=== PATIENT | male | born 1970 | race Caucasian/White ===

== ENCOUNTER 2017-05-23 07:59 | Inpatient (IN) | payer OTHER ==
[2017-05-02 15:15] VITALS: BMI 32.0
--- NOTE | 2017-05-02 15:40 | PAT Medication Instructions ---
Service Date May 02, 2017. Current Home Medication List Carvedilol (Coreg), 25 MG PO BID Gabapentin (Neurontin), 300 MG PO TID Hydrocodone-Acetaminophen (Lortab 5-325 mg), 1 TAB PO QID PRN for Pain Medication Instructions For Your Scheduled Surgery - Take the following medications the morning of surgery with a sip of water: Carvedilol (Coreg), 25 MG PO BID Gabapentin (Neurontin), 300 MG PO TID Hydrocodone-Acetaminophen (Lortab 5-325 mg), 1 TAB PO QID PRN for Pain (if needed up to four hours before surgery) - Take the following medications as scheduled the night before surgery: Carvedilol (Coreg), 25 MG PO BID Gabapentin (Neurontin), 300 MG PO TID Hydrocodone-Acetaminophen (Lortab 5-325 mg), 1 TAB PO QID PRN for Pain (if needed) If you have any questions please call us at [phone] or [phone] or [phone]
[2017-05-02 16:32] LABS: BASO % 0.4 %; BASO ABS # 0.05 K/uL (0-0.2); COMPLETE YES; EOS % 2.5 %; HEMATOCRIT 47.8 % (42-52); IG% 0.3 %; LYMPH % 24.5 %; LYMPH ABS # 2.77 K/uL (1.2-3.4); MEAN CELL VOLUME 91.4 fL (80-100); MEAN CORPUSCULAR HEMOGLOBIN 31.5 pg (25-34); MEAN CORPUSCULAR HGB CONC 34.5 g/dl (32-36); MEAN PLATELET VOLUME 9.6 fL (7.4-10.4); MONO % 8.9 %; NEUT % 63.4 %; PLATELET COUNT 327 K/uL (130-400); RED BLOOD COUNT 5.23 M/uL (4.7-6.1); WHITE BLOOD COUNT 11.31 K/uL (4.8-10.8)
--- NOTE | 2017-05-02 16:36 | DIAGNOSTIC IMAGING REPORT ---
TWO VIEW CHEST CLINICAL HISTORY: Preoperative examination. FINDINGS: PA and lateral chest radiographs are obtained. No prior studies are available for comparison at the time of dictation. The cardiomediastinal silhouette is unremarkable. The lungs and pleural spaces are clear. There is no pneumothorax. The bony thorax appears intact. Fusion hardware is seen in the lower cervical spine. IMPRESSION: No active disease in the chest. Electronically signed by: Sesar Nassar M.D. 05/02/2017 4:35 PM Dictated Date/Time: 05/02/2017 4:35 PM
[2017-05-02 16:40] LABS: BUN/CREATININE RATIO 10.3 (10-20); POTASSIUM 4.1 mmol/L (3.5-5.1)
[2017-05-02 16:50] LABS: URINE APPEARANCE CLOUDY (CLEAR); URINE BILIRUBIN NEG (NEG); URINE COLOR YELLOW; URINE NITRITE NEG (NEG); URINE PH 5.5 (4.5-7.5); URINE SPECIFIC GRAVITY 1.023 (1.000-1.030); UROBILINOGEN NEG (NEG); ZZUR CULT IF INDIC CLEAN CATCH NO
[2017-05-02 16:52] LABS: MANUAL MICROSCOPIC REQUIRED? NO; REVIEW REQ? NO
[2017-05-02 16:53] LABS: PARTIAL THROMBOPLASTIN RATIO 1.2; PROTHROMBIN TIME (PATIENT) 10.9 SECONDS (9.0-12.0)
[2017-05-02 17:16] LABS: ESTIMATED AVERAGE GLUCOSE 128 mg/dl; HA1C FLAG Normal (Normal)
--- NOTE | 2017-05-22 13:32 | HISTORY & PHYSICAL EXAMINATION ---
DATE OF ADMISSION: 05/23/2017 HISTORY OF PRESENT ILLNESS: The patient is a 46-year-old white male 6 foot, 240 pounds presents with complaints of ongoing pain attributed to his left knee. He has failed attempts at conservative management and presents for left total knee arthroplasty. He has failed attempts at injections, viscosupplementations, corticosteroid injections, anti-inflammatories, relative rest, activity modification. He presents with subchondral cystic formation lateral compartment DJD, valgus alignment, osteophytes with complaints of pain that are affecting him on a daily basis. He is unable to ambulate without pain, it is affecting the quality of his life. Discussed risks and complications and he has elected to proceed forward with total knee arthroplasties. PAST MEDICAL HISTORY: Significant for hypertension, sleep apnea, rheumatoid arthritis, spine DJD, neck DJD. FAMILY HISTORY: Otherwise unremarkable and noncontributory. SOCIAL HISTORY: The patient relates smoking 1 pack per day for 20 years, drinking 5 alcoholic drinks per week. No recreational drug use of marijuana is noted. PAST SURGICAL HISTORY: Otherwise unremarkable. ALLERGIES: None. MEDICATIONS: Include hypertensive medication, dose unknown. REVIEW OF SYSTEMS: Otherwise unremarkable. See history of present illness for pertinent positives. PHYSICAL EXAMINATION: GENERAL: Reveals a very pleasant 46-year-old white male with severe end-stage DJD who has failed attempts at conservative management and presents for total knee arthroplasty. He is otherwise unremarkable. HEENT: Atraumatic, normocephalic. HEART: Regular rate at 72 beats per minute. No murmurs are noted. LUNGS: Clear. No rales, rhonchi, or wheezes noted. ABDOMEN: Soft, nontender, nondistended. Bowel sounds are present in all 4 quadrants. RECTAL: No rectal examination was performed. MUSCULOSKELETAL: There is severe end-stage degenerative joint disease, left knee. Plan is for left total knee arthroplasty, postoperative pain management, DVT prophylaxis. X-ray of the left knee revealed evidence of subchondral sclerosis. Lateral compartment osteophytes sclerosis, subchondral and chondral defects as well as patellofemoral DJD with marginal osteophytes about the entire knee. The patient has failed attempts at conservative management and presents for total knee arthroplasty. MTDD
[~2017-05-23] VITALS: Ht 182.9 cm; Wt 109.2 kg
[2017-05-23] VITALS (8 sets, daily range): BP systolic 131–153; BP diastolic 77–100; PULSE 71–87; TEMP 36.5–36.8; O2SAT 95–99; Ht 182.9 cm; Wt 109.2 kg
[2017-05-23] MEDS: TRANEXAMIC ACID INJ 1,000 MG in SODIUM CHLORIDE 0.9% 100ML 100 ML IV SCH ×2 (06:30→09:52)
--- NOTE | 2017-05-23 07:09 | History & Physical Bridge Note ---
H&P Re-Evaluation Bridge Note: I have examined the patient, reviewed the History & Physical and in the interval since the performance of the History & Physical I have noted the following changes of clinical significance: No changes noted
[~2017-05-23 07:59] MED LIST: ACETAMINOPHEN 500 MG TAB PO SCH; ATROPINE SULFATE 0.1 MG/ML 5ML SYR IV PRN; BUPIVACAINE 0.5 % 5 MG/1 ML PF 10ML VIAL ONE; CARV25TA PO; CEFAZOLIN 2000MG IV PUSH 10 ML IV SCH; CeleBREX 200 MG CAP PO SCH; DEXAMETHASONE 4 MG TAB PO SCH; EpHEDrine SULFATE INJ 50 MG/ML AMP IV PRN; FAMOTIDINE 20 MG TAB PO SCH; GABA-113 PO; GABAPENTIN 300 MG CAP PO SCH; HYDR-4330 PO; HYDROmorphone INJ 2 MG/ML SYR/VIAL IV PRN; LACTATED RINGER'S 1000ML 1,000 ML IV SCH; LACTATED RINGER'S 1000ML IV SCH; LACTATED RINGER'S 500 ML IV SCH; METOCLOPRAMIDE HCL 10 MG TAB PO SCH; ONDANSETRON INJ 2 MG/ML 2 ML VIAL IV PRN; OXYCODONE HCL 10 MG TABCR (OXYCONTIN) PO SCH; PHENYLEPHRINE 100MCG/ML 5ML SYR IV PRN; ROPIVACAINE 0.5% 5 MG/ML 30 ML VIAL ONE; ROPIVACAINE 5MG/ML 30 ML 150 MG, BUPIVACAINE/EPINEPHR 0.5% MPF 30 ML, KETOROLAC TROMETH... INFIL SCH
[2017-05-23] MEDS ORDERED: PROPOFOL IV EMULSION 10 MG/ML 20 ML VIAL IV ONE ×2 (08:50→11:14)
[2017-05-23] MEDS ORDERED: ONDANSETRON INJ 2 MG/ML 2 ML VIAL ONE (08:50)
[2017-05-23] MEDS ORDERED: LIDOCAINE HCL 2% 2 ML VIAL (20MG/ML) ONE (08:50)
[2017-05-23] MEDS ORDERED: MIDAZOLAM HCL 1 MG/ML 2ML VIAL ONE (08:51)
[2017-05-23] MEDS ORDERED: FENTANYL CITRATE INJ 50 MCG/1 ML 2 ML VIAL ONE (08:52)
[2017-05-23] MEDS ORDERED: BACITRACIN 50000 UNIT VIAL ONE (10:08)
[2017-05-23] MEDS ORDERED: POVIDONE-IODINE OP SOLN 30 ML BTL ONE (10:08)
[2017-05-23] MEDS ORDERED: ORTHO JOINT ANESTHETIC ONE (10:08)
--- NOTE | 2017-05-23 11:47 | [facility] Operative Report ---
Operative Report Operative Date May 23, 2017. Pre-Operative Diagnosis Severe End-Stage Degenerative Joint Disease Left Knee Post-Operative Diagnosis Severe End-Stage Degenerative Joint Disease Left Knee Procedure(s) Performed Left Total Knee Arthroplasty utilizing Madrigal & Nephew journey 2 nonlocked total knee arthroplasty size 6 femur 6 tibia 10 Angela [address] Faust Mechanical Process Engineer Surgeon(s) Dr. Hamlin/VLAD Tovar Estimated Blood Loss 5 ml Findings Patient presents with severe end-stage Tri-Chlor milligrams joint disease with varus alignment medial osteophyte subchondral cystic changes [id number] changes for total knee arthroplasty after failing attempts at conservative management Specimens A. Left Knee Bone and Tissue Complication(s) None Disposition Recovery Room / PACU Indications Patient presents with severe end-stage Tri-Chlor metal degenerative joint disease with varus alignment patient presents for total knee arthroplasty left knee Description of Procedure After proper prepping and draping of the left lower extremity anterior midline incision was made over the region of the extensor extensor mechanism after meticulous hemostasis was obtained and maintained in subcutaneous tissues a medial parapatellar incision was made The patella was subluxed lateralward the medial lateral gutter were cleaned from any hypertrophic synovitis and scar tissue of the distal femoral block was placed and the distal femoral osteotomy cut was made subsequently the chamfers anterior and posterior osteotomy cuts were made utilizing the 4-in-1 block the tibia was subsequently subluxed anteriorward medial and ateral meniscal remnants were excised in their entirety remnants of the anterior and posterior cruciate ligaments were excised in their entirety excellent exposure of the proximal tibia was obtained the tibial osteotomy guide was placed on the proximal tibial osteotomy cut was made once again the knee was irrigated with copious amounts of sterile saline solution the patella was subsequently everted lateralward thickened scar tissue around the patella was removed the patella was subsequently cut utilizing a freehand technique and was drilled prepared for final preparation and placement of patella socially flexion-extension gaps were checked and the equal and symmetric trials were placed to the appropriate femoral and tibial trials with poly-spacer being placed for equal flexion and extension gaps and full range of motion including extension to 0 and flexion to 140 the trial components after having been taken to recovery range of motion was subsequently removed meticulous hemostasis was obtained and maintained subsequently a knee block injection of joint cocktail including ropivacaine 0.5% 150 mg. Bupivacaine 0.5 % epinephrine 1-200,030 mL's toradol 30 mg dexamethasone 4 mg ketamine 10 mg clonidine 100 micrograms normal saline solution 30 mg was infiltrated into the soft tissues of the posterior knee medial lateral gutters and periosteal synovium special attention was paid to protect neurovascular structures at all times subsequently trial components having been removed the knee was irrigated with sterile saline solution. debris was removed the proximal tibia was subsequently prepared and was made ready for the placement of the tibial component tibial component was also cemented and tamped into position the femoral component was subsequently placed and cemented in the position the patellar component was subsequently cemented in position because hemostasis once again obtained and maintained wound having been thoroughly irrigated with debridement and debridement lavage was performed as well as a medial parapatellar incision closed with #1 Vicryl in interrupted fashion subcutaneous was closed with #2 Vicryl skin was closed with skin clips. Dr Oliveira and TANIA were necessary for prepping and drapping as well as wound closure of deep fascia Sub cutaneous tissue and skin and was necessary for the case. A sterile compressive dressing was placed patient was taken to recovery in stable condition of report dictated by Govind I attest to the content of the Intraoperative Record and any orders documented therein. Any exceptions are noted below. I attest to the content of the Intraoperative Record and any orders documented therein. Any exceptions are noted below.
[2017-05-23] MEDS ORDERED: MAGNESIUM HYDROXIDE SUSP 30 ML UDC PO PRN (12:30)
[2017-05-23] MEDS ORDERED: ONDANSETRON INJ 2 MG/ML 2 ML VIAL IV PRN (12:30)
[2017-05-23] MEDS ORDERED: BISACODYL 10 MG SUPP PR PRN (12:30)
[2017-05-23] MEDS ORDERED: ALUMINUM/MAGNESIUM/SIMETH (MAALOX MAX) 30 ML UDC PO PRN (12:30)
[2017-05-23] MEDS ORDERED: HYDROmorphone INJ 2 MG/ML SYR/VIAL ONE (12:41)
--- NOTE | 2017-05-23 12:55 | DIAGNOSTIC IMAGING REPORT ---
L KNEE 1 OR 2 VIEWS ROUTINE CLINICAL HISTORY: AP/LATERAL IN PACU LEFT KNEE COMPARISON: None. DISCUSSION: Anatomic alignment status post total left knee arthroplasty. Good contact between prosthetic and underlying bone. Surgical drains are in position. Expected soft tissue postoperative change IMPRESSION: Anatomic alignment status post total joint replacement The above report was generated using voice recognition software. It may contain grammatical, syntax or spelling errors. Electronically signed by: Krystian Morel M.D. 05/23/2017 12:53 PM Dictated Date/Time: 05/23/2017 12:53 PM
--- NOTE | 2017-05-23 13:13 | Anesthesiology Progress Note ---
Anesthesia Post Op Note Date & Time May 23, 2017 at 13:13 Vital Signs Pain Intensity: 3 Vital Signs Past 12 Hours Date Time Temp Pulse Resp B/P (MAP) Pulse Ox O2 Delivery O2 Flow Rate FiO2 05/23/17 13:09 68 18 05/23/17 13:09 79 18 100 05/23/17 13:06 133/96 05/23/17 13:04 61 24 05/23/17 13:04 61 24 100 05/23/17 13:01 120/81 05/23/17 12:59 79 21 99 05/23/17 12:59 77 21 05/23/17 12:58 36.5 67 22 120/81 (93) 100 Nasal Cannula 2 05/23/17 12:56 137/80 05/23/17 12:54 57 14 100 05/23/17 12:54 60 14 05/23/17 12:53 114/91 05/23/17 12:50 58 16 136/88 100 Nasal Cannula 2 05/23/17 12:40 60 16 140/90 100 Nasal Cannula 2 05/23/17 12:30 59 16 138/93 100 Nasal Cannula 2 05/23/17 12:20 37.2 63 16 152/97 99 Nasal Cannula 2 05/23/17 08:23 36.6 80 20 153/91 96 Notes Mental Status: alert / awake / arousable, participated in evaluation Pt Amnestic to Procedure: Yes Nausea / Vomiting: adequately controlled Pain: adequately controlled Airway Patency, RR, SpO2: stable & adequate BP & HR: stable & adequate Hydration State: stable & adequate Anesthetic Complications: no major complications apparent
[2017-05-23] MEDS: OXYCODONE HCL IR 5 MG TAB (IMMEDIATE RELEASE) PO PRN ×2 (13:55→22:03)
[2017-05-23] MEDS: GABAPENTIN 300 MG CAP PO SCH ×2 (14:11→21:01)
[2017-05-23] MEDS: ACETAMINOPHEN 500 MG TAB PO SCH ×2 (14:11→22:03)
[2017-05-23] MEDS: D5W AND 1/2NSS + 20MEQ KCL 1,000 ML IV SCH (14:11)
[2017-05-23] MEDS: TRAMADOL HCL 50 MG TAB PO PRN (16:31)
[2017-05-23] MEDS: FERROUS GLUCONATE 324 MG TAB PO SCH (18:30)
[2017-05-23] MEDS: CEFAZOLIN IV 2,000 MG in SYRINGE 0 ML IV SCH (18:32)
[2017-05-23] MEDS: KETOROLAC TROMETHAMINE 30 MG/ML VIAL IV. SCH (18:32)
[2017-05-23] MEDS: DOCUSATE SODIUM 100 MG CAP PO SCH (21:00)
[2017-05-23] MEDS: CARVEDILOL 25 MG TAB PO SCH (21:01)
[2017-05-23] MEDS: ASPIRIN 81 MG ECTAB PO SCH (21:01)
[2017-05-23] MEDS ORDERED: NURSING VERBAL MED ORDER ONE (23:00)
[2017-05-24] VITALS (8 sets, daily range): BP systolic 116–160; BP diastolic 50–82; PULSE 64–82; TEMP 36.5–36.8; O2SAT 96–99
[2017-05-24] MEDS: D5W AND 1/2NSS + 20MEQ KCL 1,000 ML IV SCH ×2 (00:24→10:00)
[2017-05-24] MEDS: KETOROLAC TROMETHAMINE 30 MG/ML VIAL IV. SCH ×3 (00:24→11:58)
[2017-05-24] MEDS: CEFAZOLIN IV 2,000 MG in SYRINGE 0 ML IV SCH (02:03)
[2017-05-24] MEDS: ACETAMINOPHEN 500 MG TAB PO SCH ×3 (05:41→22:23)
[2017-05-24 07:23] LABS: MEAN CORPUSCULAR HEMOGLOBIN 30.9 pg (25-34); MEAN CORPUSCULAR HGB CONC 33.2 g/dl (32-36); MEAN PLATELET VOLUME 9.8 fL (7.4-10.4); PLATELET COUNT 270 K/uL (130-400); RED BLOOD COUNT 3.98 M/uL (4.7-6.1); WHITE BLOOD COUNT 25.26 K/uL (4.8-10.8)
[2017-05-24 07:58] LABS: BUN/CREATININE RATIO 10.3 (10-20); CREATININE 1.01 mg/dl (0.60-1.40); POTASSIUM 4.8 mmol/L (3.5-5.1)
--- NOTE | 2017-05-24 07:58 | Orthopedic Progress Note ---
Orthopedic Progress Note Date of Service May 24, 2017. Subjective Post OP Day: 1 Reports: feeling well, Denies: complaints Additional Notes: Pain controlled currently. No complaints this AM. Objective calves soft nontender, N/V intact, dressing C/D/I, A&O x3, toes mobile, hemovac drainage (200ml latest shift) Date Time Temp Pulse Resp B/P (MAP) Pulse Ox O2 Delivery O2 Flow Rate FiO2 05/24/17 07:22 36.5 71 18 116/69 (85) 98 Room Air 05/24/17 03:15 36.6 82 18 116/69 (85) 96 Room Air 05/23/17 23:30 Room Air 05/23/17 22:43 36.8 84 18 132/77 (95) 98 Room Air 05/23/17 20:59 71 146/91 (109) 05/23/17 19:10 36.5 78 18 146/83 (104) 97 Room Air 05/23/17 16:20 95 Room Air 3.0 05/23/17 14:30 81 18 152/100 (117) 95 Room Air 05/23/17 14:02 87 16 131/88 (102) 95 Nasal Cannula 3.0 05/23/17 13:30 Nasal Cannula 2.0 05/23/17 13:30 99 Nasal Cannula 2.0 05/23/17 13:30 36.7 77 16 137/85 (102) 99 Nasal Cannula 2.0 05/23/17 13:09 68 18 05/23/17 13:09 79 18 100 05/23/17 13:06 133/96 05/23/17 13:04 61 24 05/23/17 13:04 61 24 100 05/23/17 13:01 120/81 05/23/17 12:59 79 21 99 05/23/17 12:59 77 21 05/23/17 12:58 36.5 67 22 120/81 (93) 100 Nasal Cannula 2 05/23/17 12:56 137/80 05/23/17 12:54 57 14 100 05/23/17 12:54 60 14 05/23/17 12:53 114/91 05/23/17 12:50 58 16 136/88 100 Nasal Cannula 2 05/23/17 12:40 60 16 140/90 100 Nasal Cannula 2 05/23/17 12:30 59 16 138/93 100 Nasal Cannula 2 05/23/17 12:20 37.2 63 16 152/97 99 Nasal Cannula 2 05/23/17 08:23 36.6 80 20 153/91 96 Laboratory Results 24 Hours: Test 05/24/17 06:43 Hematocrit 37.0 % Hemoglobin 12.3 g/dL Assessment & Plan Assessment: POD 1 s/p Left TKA Leukocytosis - likely due to preop steroids/surgical stress. Asymptomatic. Will recheck CBC tomorrow Plan: PT/OT Unsure of what he would like to do for PT. Plans to talk to CM this AM. OPPT vs HH services Inhouse Planning Pain Management: Celebrex, Toradol, Ultram, PO Tylenol, Oxy IR DVT Prophylaxis: TEDs, SCDs, ASA Discharge Planning Discharge Planning: uncertain
[2017-05-24] MEDS: FERROUS GLUCONATE 324 MG TAB PO SCH ×3 (08:56→18:33)
[2017-05-24] MEDS: DOCUSATE SODIUM 100 MG CAP PO SCH ×2 (08:57→20:54)
[2017-05-24] MEDS: MULTIVITAMIN TAB PO SCH (08:57)
[2017-05-24] MEDS: GABAPENTIN 300 MG CAP PO SCH ×3 (08:57→20:55)
[2017-05-24] MEDS: ASPIRIN 81 MG ECTAB PO SCH ×2 (08:57→20:55)
[2017-05-24] MEDS: PANTOprazole SOD 40 MG TAB PO SCH (08:58)
[2017-05-24] MEDS: OXYCODONE HCL IR 5 MG TAB (IMMEDIATE RELEASE) PO PRN ×3 (09:02→21:06)
[2017-05-24] MEDS: CARVEDILOL 25 MG TAB PO SCH ×2 (09:06→20:54)
[2017-05-24] MEDS: NICOTINE 14 MG/24 HR TDSY TD SCH (09:08)
--- NOTE | 2017-05-24 13:56 | Discharge Instructions ---
Discharge Instructions Date of Service May 24, 2017. Admission Reason for Admission: Osteoarthritis Left Knee Discharge Discharge Diagnosis / Problem: sp left TKA Discharge Goals Goal(s): Decrease discomfort, Improve function, Increase independence Activity Recommendations Activity Limitations: per Instructions/Follow-up section . Instructions / Follow-Up Instructions / Follow-Up ACTIVITY RECOMMENDATIONS: SELF CARE INSTRUCTIONS AFTER TOTAL KNEE REPLACEMENT A. You may need to continue a physical therapy program after discharge from the hospital. There are several options available to you. Your doctor will assist you in selecting the best one for you. 1. An out-patient facility 2 to 3 times a week for therapy or home therapy. 2. Continue working on all exercises taught to you in the hospital. Your goals should be to increase bending of your knee to 90 degrees and beyond and to fully straighten your knee. B. You may progress at your own pace from walking with a walker or crutches to a cane; then to no assistive devices. C. Make walking a part of your daily routine. Be up as much as comfortable with rest periods throughout the day. Rest with leg elevation is very important. Use the ice wrap frequently for the first 3-4 weeks. D. There are no restrictions on activities. You may ride in a car, shop, participate in reading teacher and all social activities. E. Wear the long elastic stockings (EBEN hose) 20 hours a day for 2 weeks after surgery. They can be removed several times a day for laundering and for a bath. F. You may shower, no tub baths until cleared by your doctor. SPECIAL CARE INSTRUCTIONS: VERY IMPORTANT TO READ AND REVIEW A. There are a few signs you need to watch for after you are home. Call [facility] if you notice any of the followin. Increased severe knee pain. Some pain is expected especially when you exercise. 2. Increased swelling in your leg or knee; pain or swelling of the calf muscle in either lower leg. 3. Any fluid drainage from the incision. 4. Shortness of breath or chest pain. B. Please call [facility] at if you have any concerns or questions about your operation or recovery. The doctor or his nurse will return your call promptly. C. You must take antibiotics before dental work, bladder, bowel or other surgery. Your doctor will provide you with a permanent care to carry describing this precaution. IMPORTANT: * REMEMBER TO TAKE ASPIRIN, 81 MG, TWICE DAILY FOR 4 WEEKS UNLESS OTHERWISE DIRECTED. THIS IS YOUR BLOOD THINNER. * HIGH RISK PATIENTS MAY BE PRESCRIBED A STRONGER BLOOD THINNER. THIS WILL BE PROVIDED AT DISCHARGE. * CALL IF INCREASED PAIN, REDNESS, DRAINAGE OR FEVER GREATER THAT 101. * WEAR EBEN HOSE 20 HOURS PER DAY FOR 2 WEEKS. DERMABOND Prineo- This is a mesh tape dressing that is covered with glue. It should remain in place until the incision is properly healed, usually 10-14 days. This dressing is designed to naturally slough off. You may trim the excess mesh tape as it peels off. Incision may be briefly wet in a shower. Dry immediately by blotting with a clean, dry towel. Do not bath or swim until instructed by your doctor. Do not scratch, rub, or pick at the dressing. Do not apply any topical ointments or lotions until dressing is completely removed and/or instructed by your doctor. There may be a small piece of suture material at one end of your incision. Do not pull or trim this. If it is bothersome or catching on clothing, you may cover it with a band-aid. FOLLOW UP VISIT: If appointment is not already scheduled: Please call [facility] to make a follow-up appointment for 2 weeks after your surgery at . Current Hospital Diet Patient's current hospital diet: Regular Diet Discharge Diet Recommended Diet: Regular Diet Procedures Procedures Performed: Left Total Knee Arthroplasty utilizing Madrigal & Nephew journey 2 nonlocked total knee arthroplasty size 6 femur 6 tibia 10 Angela 35 oval patella Pending Studies Studies pending at discharge: no Laboratory Results Hemoglobin A1c Test 05/02/17 15:22 Range/Units Estimated Average Glucose 128 mg/dl Hemoglobin A1c 6.1 H 4.5-5.6 % Medical Emergencies . Who to Call and When: Medical Emergencies: If at any time you feel your situation is an emergency, please call 911 immediately. . Non-Emergent Contact Non-Emergency issues call your: Surgeon . "Provider Documentation" section prepared by Samantha Arrieta. . VTE Core Measure Inpt VTE Proph given/why not?: Other Anticoagulation, T.E.D. Stockings, SCD's [place] Drug Monitoring Program Search Results: patient reviewed within database, no issues identified
[2017-05-24] MEDS ORDERED: RXC5 PO (14:09)
[2017-05-24] MEDS ORDERED: ACET-24 PO (14:09)
[2017-05-24] MEDS ORDERED: ONDA8TAB6 PO (14:09)
[2017-05-24] MEDS ORDERED: ASPEC81 PO (14:09)
[2017-05-24] MEDS ORDERED: CLB200 PO (14:09)
--- NOTE | 2017-05-24 14:24 | Anesthesiology Progress Note ---
Anesthesia Post Op Note Date & Time May 24, 2017 at 14:23 Vital Signs Vital Signs Past 12 Hours Date Time Temp Pulse Resp B/P (MAP) Pulse Ox O2 Delivery O2 Flow Rate FiO2 05/24/17 11:04 36.6 73 18 123/72 (89) 99 Room Air 05/24/17 09:06 67 146/75 (98) 05/24/17 07:30 Room Air 05/24/17 07:22 36.5 71 18 116/69 (85) 98 Room Air 05/24/17 03:15 36.6 82 18 116/69 (85) 96 Room Air Notes Mental Status: alert / awake / arousable, participated in evaluation Pt Amnestic to Procedure: Yes Nausea / Vomiting: adequately controlled Pain: adequately controlled Airway Patency, RR, SpO2: stable & adequate BP & HR: stable & adequate Hydration State: stable & adequate Neuraxial Anesthesia: sensory block resolved Anesthetic Complications: no major complications apparent
[2017-05-24] MEDS: TRAMADOL HCL 50 MG TAB PO PRN (19:46)
[2017-05-24] MEDS: CeleBREX 200 MG CAP PO SCH (20:57)
[2017-05-25] MEDS: TRAMADOL HCL 50 MG TAB PO PRN ×2 (00:46→05:51)
[2017-05-25] MEDS: OXYCODONE HCL IR 5 MG TAB (IMMEDIATE RELEASE) PO PRN ×4 (01:08→14:43)
[2017-05-25] MEDS: ACETAMINOPHEN 500 MG TAB PO SCH ×2 (05:42→13:44)
[2017-05-25 06:00] VITALS: BP 153/95; PULSE 64; TEMP 36.7; O2SAT 100
[2017-05-25 06:49] LABS: HEMATOCRIT 32.6 % (42-52); MEAN CELL VOLUME 94.2 fL (80-100); MEAN CORPUSCULAR HEMOGLOBIN 30.6 pg (25-34); MEAN CORPUSCULAR HGB CONC 32.5 g/dl (32-36); MEAN PLATELET VOLUME 9.6 fL (7.4-10.4); PLATELET COUNT 230 K/uL (130-400); RED BLOOD COUNT 3.46 M/uL (4.7-6.1); WHITE BLOOD COUNT 12.13 K/uL (4.8-10.8)
--- NOTE | 2017-05-25 08:33 | Orthopedic Progress Note ---
Orthopedic Progress Note Date of Service May 25, 2017. Subjective Post OP Day: 2 Reports: feeling well, Denies: chest pain, SOB, nausea / vomiting, light headedness, calf pain Additional Notes: PATIENT HAVING SOME PAIN OVERNIGHT AND INTO THIS MORNING. TAKES CHRONIC NORCO PRN SINCE NECK SURGERY. Objective calves soft nontender, N/V intact, capillary refill less than 2 sec., dressing C /D/I, A&O x3, toes mobile Date Time Temp Pulse Resp B/P (MAP) Pulse Ox O2 Delivery O2 Flow Rate FiO2 05/25/17 07:45 Room Air 05/25/17 06:00 36.7 64 16 153/95 (114) 100 Room Air 05/25/17 00:15 Room Air 05/24/17 23:42 36.7 68 16 140/75 (96) 99 Room Air 05/24/17 20:50 64 16 160/82 (108) 05/24/17 19:26 36.8 70 16 122/50 (74) 99 Room Air 05/24/17 15:30 Room Air 05/24/17 15:20 36.6 78 16 134/76 (95) 98 Room Air 05/24/17 11:04 36.6 73 18 123/72 (89) 99 Room Air 05/24/17 09:06 67 146/75 (98) Laboratory Results 24 Hours: Test 05/25/17 06:10 Hematocrit 32.6 % Hemoglobin 10.6 g/dL Assessment & Plan Assessment: POD 2 s/p Left TKA Leukocytosis - likely due to preop steroids/surgical stress. Asymptomatic. TRENDING DOWN Plan: PT/OT DC HOME TODAY WITH HOME PT ADDED OXYCONTIN TO PAIN REGIMEN DUE TO CHRONIC NARCOTIC USE/TOLERANCE. Inhouse Planning Pain Management: Celebrex, Toradol, Ultram, PO Tylenol, Oxy IR DVT Prophylaxis: TEDs, SCDs, ASA Discharge Planning Discharge Planning: uncertain
[2017-05-25] MEDS ORDERED: OXYSR/10 PO (08:34)
[2017-05-25] MEDS ORDERED: OXYCODONE HCL 10 MG TABCR (OXYCONTIN) PO SCH (09:00)
[2017-05-25] MEDS: NICOTINE 14 MG/24 HR TDSY TD SCH (09:00)
[2017-05-25] MEDS: CeleBREX 200 MG CAP PO SCH (09:14)
[2017-05-25] MEDS: FERROUS GLUCONATE 324 MG TAB PO SCH ×2 (09:14→12:38)
[2017-05-25] MEDS: ASPIRIN 81 MG ECTAB PO SCH (09:14)
[2017-05-25] MEDS: DOCUSATE SODIUM 100 MG CAP PO SCH (09:14)
[2017-05-25] MEDS: PANTOprazole SOD 40 MG TAB PO SCH (09:15)
[2017-05-25] MEDS: MULTIVITAMIN TAB PO SCH (09:15)
[2017-05-25] MEDS: GABAPENTIN 300 MG CAP PO SCH ×2 (09:15→13:44)
[2017-05-25 09:54] VITALS: BP 150/75; PULSE 73
[2017-05-25] MEDS: CARVEDILOL 25 MG TAB PO SCH (09:55)
[2017-05-25 10:39] VITALS: BP 150/75; PULSE 73; TEMP 36.7; O2SAT 100
== END 2017-05-25 16:00 | disposition home health service (06) | DRG 470 ==
LOC: C.ACU 07:59 → C.3E 12:29 → ENRESERV 12:39
PROVIDERS: ADMIT Orthopaedic Surgery; ATTEND Orthopaedic Surgery
PROC: 0SRD0J9 Replacement of Left Knee Joint with Synthetic Substitute, Cemented, Open Approach (ICD-10-PCS; principal; 2017-05-23 10:45)
DX: M17.12 Unilateral primary osteoarthritis, left knee (principal); I10 Essential (primary) hypertension; F17.200 Nicotine dependence, unspecified, uncomplicated; Z79.899 Other long term (current) drug therapy